=== PATIENT | female | born 1970 | race Caucasian/White ===

== ENCOUNTER 2025-07-01 09:23 | Day surgery (SDC) | payer OTHER ==
[~2025-07-01] VITALS: Ht 170.2 cm; Wt 80.3 kg
[2025-07-01] MEDS: CEFUROXIME 1 MG/0.1 ML INTRACAMERAL INJ As Ordered ONE (07:05)
[~2025-07-01 09:23] MED LIST: DIVA-41 PO; ECOT81TA5 PO; LR 1,000 ML IV SCH; MIDAZOLAM INJ 2 MG/2 ML VIAL As Ordered ONE; THERTAB52 PO
[2025-07-01] MEDS: PHENYLEPHRINE 2.5% OPHTH SOL 2ML OS SCH (10:03)
[2025-07-01] MEDS: TETRACAINE 0.5% OPHTH SOLN 4ML OS SCH (10:03)
[2025-07-01] MEDS: FLURBIPROFEN 0.03% OPHTH SOLN 2.5 ML OS SCH (10:03)
[2025-07-01] MEDS: CYCLOPENTOLATE 1% OPHTH SOLN 2 ML BTL OS SCH (10:03)
[2025-07-01] MEDS: LIDOCAINE 1% SDV 5 ML VIAL As Ordered ONE (11:20)
[2025-07-01 11:40] VITALS: BP 114/65; TEMP 97.4; O2SAT 98
== END 2025-07-01 11:51 | disposition home or self-care (01) ==
LOC: M SDC 09:23
PROVIDERS: ATTEND Ophthalmology
DX: H25.12 Age-related nuclear cataract, left eye (principal); G40.909 Epilepsy, unspecified, not intractable, without status epilepticus; K21.9 Gastro-esophageal reflux disease without esophagitis; Z79.899 Other long term (current) drug therapy; Z87.891 Personal history of nicotine dependence
CPT/HCPCS: 66984; J0697; J2250; J3010; V2632